=== PATIENT | female | born 1985 | race Caucasian/White ===

== ENCOUNTER 2018-12-29 08:52 | Emergency (ER) | payer OTHER, BC ==
[~2018-12-29] VITALS: Ht 170.2 cm; Wt 68.5 kg
[2018-12-29] MEDS ORDERED: IV NORMAL SALINE 1000ML BAG 1,000 ML IV SCH (09:26)
[2018-12-29] MEDS ORDERED: MORPHINE SULFATE 2 MG/ML VIAL. IV ONE (09:30)
[2018-12-29] MEDS ORDERED: ONDANSETRON PF 4 MG/2 ML VIAL. IV ONE (09:30)
[2018-12-29 09:44] LABS: BASO % 1 % (0-3); EOS % 1 % (0-3); HEMATOCRIT 40.7 % (36.0-47.0); LYMPH # 0.8 x10^3/uL (1.0-4.8); LYMPH % 17 % (24-48); MEAN CORPUSCULAR HEMOGLOBIN 31 pg (25-35); MEAN CORPUSCULAR HGB CONC 35 g/dL (31-37); MEAN CORPUSCULAR VOLUME 89 fL (79-100); MONO # 0.5 x10^3/uL (0.0-1.1); MONO % 10 % (0-9); NEUT # 3.3 x10^3uL (1.8-7.7); NEUT % 71 % (31-73); PLATELET COUNT 135 x10^3/uL (140-400); RED BLOOD COUNT 4.55 x10^6/uL (3.50-5.40); RED CELL DISTRIBUTION WIDTH 12.4 % (11.5-14.5); WHITE BLOOD COUNT 4.6 x10^3/uL (4.0-11.0)
[2018-12-29] MEDS ORDERED: IOHEXOL 300 MG/ML 100ML VIAL. IV ONE (09:45)
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
[2018-12-29 09:56] LABS: PREG TEST PT QUAL NEGATIVE (NEG)
[2018-12-29 09:59] LABS: CALCIUM 9.2 mg/dL (8.5-10.1); CREATININE 0.9 mg/dL (0.6-1.0); GFR 72.6
[2018-12-29] MEDS ORDERED: CONTRAST GIVEN. MC PRN (10:00)
[2018-12-29 10:02] LABS: PROTHROMBIN TIME PATIENT 12.7 SEC (11.7-14.0)
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
[2018-12-29 11:59] LABS: BILIRUBIN,URINE NEGATIVE (NEG); CLARITY,URINE CLEAR; COLOR,URINE YELLOW; NITRITE,URINE NEGATIVE (NEG); PH,URINE 5.5; PROTEIN,URINE NEGATIVE (NEG-TRACE); UROBILINOGEN,URINE 0.2 mg/dL (0.2 mg/dL)
[2018-12-29 12:06] LABS: BARBITURATES NEG (NEG); BENZODIAZEPINES NEG (NEG); CANNABINOIDS NEG (NEG); COCAINE NEG (NEG); METHADONE NEG (NEG); OPIATES POS (NEG); PHENCYCLIDINE NEG (NEG)
[2018-12-29 12:07] LABS: AMPHETAMINE/METHAMPHETAMINE NEG (NEG)
[2018-12-29 12:07] LABS: BACTERIA,URINE 0 /HPF (0-FEW); RBC,URINE 0 /HPF (0-2); SQUAMOUS EPITHELIAL CELL,UR FEW /LPF; WBC,URINE OCC /HPF (0-4)
[2018-12-29 12:11] VITALS: BP 119/67
[2018-12-29] MEDS ORDERED: CYCL10TA2 PO (12:16)
[2018-12-29] MEDS ORDERED: IBUP-1060 PO (12:16)
== END 2018-12-29 12:27 | disposition home or self-care (01) ==
LOC: ER 08:52
DX: S30.811A Abrasion of abdominal wall, initial encounter (principal); S50.312A Abrasion of left elbow, initial encounter; S80.212A Abrasion, left knee, initial encounter; R51 Headache; M54.5 Low back pain; M54.2 Cervicalgia; M54.6 Pain in thoracic spine; R10.31 Right lower quadrant pain; R53.1 Weakness; E03.9 Hypothyroidism, unspecified; Z90.89 Acquired absence of other organs; V47.5XXA Car driver injured in collision with fixed or stationary object in traffic accident, initial encounter; Y93.89 Activity, other specified; Y92.410 Unspecified street and highway as the place of occurrence of the external cause; Y99.8 Other external cause status
CPT/HCPCS: 36415; 70450; 70486; 71260; 72125; 72128; 72131; 74177; 80048; 80307; 81001; 84703; 85025; 85610; 85730; 86850; 86900; 86901; 96374; 96375; 99285; G0480; J2270; J2405; J7030; Q9967